=== PATIENT | female | born 1970 | race Caucasian/White ===

== ENCOUNTER 2016-03-28 07:56 | Emergency (ER) | payer OTHER ==
[2016-03-28 08:02] VITALS: TEMP 97.9; O2SAT 97
--- NOTE | 2016-03-28 08:11 | EDPHY ---
H & P Time Seen by Provider: 03/28/16 08:04 HPI/ROS: CHIEF COMPLAINT: Dizziness. HISTORY OF PRESENT ILLNESS: The patient is a 45-year-old female with a history of vertigo who presents with dizziness. She has been experiencing a reemergence of her vertigo over the past few days. Yesterday she had an Jarrett maneuver performed by Dr. Mott that helped and she felt better last night. Today she woke up again nauseated and dizzy. Yesterday the dizziness was worsened with turning her head. Today it is worsened with any head movement at all. It is described as non-stop spinning that occurs in random directions. She admits constant associated nausea. No numbness or tingling. No ringing in her ears. No fever, chills, weakness, chest pain, shortness of breath, palpitations, vomiting , diarrhea, urinary complaints, headache, lightheadedness. She does report having a sinus infection a few weeks ago. REVIEW OF SYSTEMS: Aside from elements discussed in the HPI, a comprehensive 10-point review of systems was reviewed and is negative. PAST MEDICAL HISTORY: Asthma, SVT, kidney stones. SOCIAL HISTORY: Here with . VITAL SIGNS: Reviewed by me GENERAL: Well-developed, well-nourished, resting comfortably in no respiratory distress. HEENT: Atraumatic. Eyes: No nystagmus. EOMI. No icterus, no injection. Mouth: moist mucous membranes. No erythema or lesions. Neck: supple with no adenopathy. LUNGS: Clear to auscultation bilaterally, no wheezes, rhonchi or rales. CARDIAC: Regular rate and rhythm, no rubs, murmurs or gallops. ABDOMEN: Soft, nontender, nondistended, bowel sounds normal. BACK: No CVA tenderness. EXTREMITIES: No trauma. No edema. Range of motion is normal throughout. NEURO: Alert and oriented, grossly nonfocal. Normal finger to nose. SKIN: Warm and dry, no rash. PSYCHIATRIC: Normal mentation, no agitation. Portions of this note were transcribed by a medical insurance coder. I personally performed a history, physical exam, medical decision making, and confirmed accuracy of information the transcribed note. Smoking Status: Former smoker Constitutional: Initial Vital Signs Temperature (C) 36.6 C 03/28/16 07:59 Heart Rate 62 03/28/16 07:59 Respiratory Rate 17 03/28/16 07:59 Blood Pressure 140/78 H 03/28/16 07:59 O2 Sat (%) 97 03/28/16 07:59 O2 Delivery Mode Room Air Allergies/Adverse Reactions: diphenhydramine HCl [From Benadryl] Allergy (Severe, Verified 03/28/16 07:58) causes svt Ragweed *RETIRED-10/23/11 [Ragweed] Allergy (Severe, Verified 03/28/16 07:58) Anaphylaxis hydrocodone bitartrate [From Vicodin] Allergy (Intermediate, Verified 03/28/16 07:58) Other-Enter Comments milk Allergy (Verified 03/28/16 07:58) Tetanus & Diphthe *RETIRED-10/23/11 [Tetanus & Diphtheria Tox,Adult] Allergy ( Verified 03/28/16 07:58) Hives Home Medications: Medication Instructions Recorded Diazepam [Valium 5 MG (*)] 5 mg PO BID PRN #15 tab 03/28/16 Meclizine HCl [Meclizine HCl 25 mg 25 mg PO Q8 PRN #20 tab 03/28/16 (RX,OTC)] methylPREDNISolone [Medrol Dose 4 mg PO DAILY #1 ea 03/28/16 Chai] Medical Decision Making ED Course/Re-evaluation: Meclizine 25mg PO administered for dizziness. 0903: I performed 2 Jarrett maneuvers on the patient. During the second maneuver she had a large amount of horizontal nystagmus with rightward gaze. She vomited after the procedures. Valium 5mg PO administered. Zofran 4mg ODT for nausea. 0955: Consulted with [facility]. Patient re-examined, reports her vertigo is improved. She still has some spinning sensation when looking to the right, but is otherwise significantly improved. Patient will follow up with [facility] as directed. She was discharged with meclizine to use regularly and Valium for breakthrough vertigo. Differential Diagnosis: Differential diagnosis of the patient's dizziness was considered including but not limited to peripheral and central causes of vertigo, cardiac arrhythmias, cardiac ischemia, electrolyte disturbances, neurologic causes, orthostatic causes including dehydration, and blood loss. - Data Points Medications Given: Discontinued Medications Diazepam (Valium) 5 mg PO EDNOW ONE Stop: 03/28/16 09:20 Last Admin: 03/28/16 09:28 Dose: 5 mg Meclizine HCl (Meclizine Hcl) 25 mg PO EDNOW ONE Stop: 03/28/16 08:21 Last Admin: 03/28/16 08:39 Dose: 25 mg Ondansetron HCl (Zofran Odt) 4 mg PO EDNOW ONE Stop: 03/28/16 10:33 Last Admin: 03/28/16 10:33 Dose: 4 mg Departure - Departure Disposition: Home, Routine, Self-Care Clinical Impression: Vertigo Condition: Good Instructions: Vertigo (ED) Additional Instructions: Take Meclizine 2-3 times per day. Take Valium as needed for dizziness not controlled by meclizine. Call Dr. Mott, ENT, today to set up a follow up appointment. He will help connect you to vestibular physical therapy. Return to the emergency department if you experience serious worsening of condition. Referrals: Rashida Callahan MD [Primary Care Provider] - As per Instructions Dorian Mott MD [Medical Doctor] - As per Instructions Prescriptions: Diazepam [Valium 5 MG (*)] 5 mg PO BID PRN #15 tab PRN Reason: vertigo Meclizine HCl [Meclizine HCl 25 mg (RX,OTC)] 25 mg PO Q8 PRN #20 tab PRN Reason: vertigo methylPREDNISolone [Medrol Dose Chai] 4 mg PO DAILY #1 ea Report Scribed for: Angelica Encarnacion Report Scribed by: Mahin Earl Date of Report: 03/28/16 Time of Report: 08:18
[2016-03-28] MEDS ORDERED: MECLIZINE HCL 25 MG TAB PO ONE (08:20)
[2016-03-28] MEDS ORDERED: ONDANSETRON DISINTEGRATING 4 MG TAB ONE (09:11)
[2016-03-28] MEDS ORDERED: DIAZEPAM 5 MG TAB PO ONE (09:19)
[2016-03-28] MEDS ORDERED: ONDANSETRON DISINTEGRATING 4 MG TAB PO ONE (10:32)
[2016-03-28 10:38] VITALS: BP 141/68; PULSE 53; RESP 18
== END 2016-03-28 10:49 | disposition home or self-care (01) ==
DX: R42 Dizziness and giddiness (principal); J45.909 Unspecified asthma, uncomplicated; Z87.891 Personal history of nicotine dependence

== ENCOUNTER → 2016-07-05 | Outpatient (CLI) | payer OTHER ==
[~2016-07-05] MED LIST: GADOBUTROL 10 ML VIAL IVP ONE
== END ==
LOC: FIMAGING 16:48
PROVIDERS: ATTEND Physician Assistant
DX: R42 Dizziness and giddiness (principal)
CPT/HCPCS: A9585

== ENCOUNTER → 2016-09-12 | Outpatient (CLI) | payer OTHER | LOC: FIMAGING 11:28 | PROVIDERS: ATTEND Internal Medicine | DX: Z12.31 Encounter for screening mammogram for malignant neoplasm of breast (principal); Z80.3 Family history of malignant neoplasm of breast | CPT/HCPCS: G0202 ==

== ENCOUNTER → 2016-11-30 | Outpatient (CLI) | payer OTHER | LOC: FIMAGING 13:39 | PROVIDERS: ATTEND Internal Medicine | DX: S92.49 Other fracture of great toe (principal); M79.641 Pain in right hand ==

== ENCOUNTER → 2017-11-20 | Outpatient (CLI) | payer OTHER | LOC: FIMAGING 12:40 | PROVIDERS: ATTEND Internal Medicine | DX: Z12.31 Encounter for screening mammogram for malignant neoplasm of breast (principal) ==